=== PATIENT | female | born 1995 | race Caucasian/White ===

== ENCOUNTER → 2020-07-11 14:10 | Outpatient (BNVA) | payer BC, SELFPAY | PROVIDERS: PCP Internal Medicine; Visit Provider Internal Medicine Cardiovascular Disease | DX: O14.90 Unspecified pre-eclampsia, unspecified trimester (principal); R00.2 Palpitations | CPT/HCPCS: 93005 ==

== ENCOUNTER → 2022-08-29 10:51 | Outpatient (BNVA) | payer OTHER, SELFPAY | PROVIDERS: PCP Nurse Practitioner Family; Referring Provider Family Medicine; Visit Provider Internal Medicine Cardiovascular Disease | DX: R00.2 Palpitations (principal) | CPT/HCPCS: 93005 ==

== ENCOUNTER → 2022-09-18 10:00 | Outpatient (REF) | payer OTHER, SELFPAY ==
--- NOTE | 2022-09-18 10:03 | HM_ITS ---
Conclusion: 1. Patient was monitored for total period of 2 days and 23 hours 2. Baseline was normal sinus rhythm with average heart of 83 beats per minute 3. No significant pauses noted 4. Rare PVCs noted 5. No patient reported events MTDD
== END ==
LOC: HO.CARD 10:00
PROVIDERS: PCP Nurse Practitioner Family; Visit Provider Internal Medicine Cardiovascular Disease
DX: R00.2 Palpitations (principal)
CPT/HCPCS: 93242

== ENCOUNTER 2023-02-11 10:28 | Outpatient (AMB) | payer OTHER, SELFPAY ==
[2023-02-11 10:33] VITALS: BP 110/76; PULSE 66; BMI 28.4
--- NOTE | 2023-02-11 10:33 | MHC.OFFVIS ---
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 She was last seen in November 2019 when she presented with chest pain and palpitations. She was sent for echocardiogram which was since she normal. The palpitations were not frequent and we decided not to do any workup for that. She developed preeclampsia during her 1st . She is returning and is 27 weeks . She has been experiencing palpitations again. She feels that her heart is racing specially when she walks and she has noticed her heart rate to be 120s. This improved with rest. No chest discomfort. No significant shortness of breath. She is taking aspirin and vitamins currently. 02/11/2023: She returns for follow-up. She delivered her 2nd baby who is 2-month-old now. She is saying she has been experiencing some palpitations which continued after delivery. She said that approximately 17 years ago she was diagnosed with orthostasis and postural intolerance. This has been an ongoing thing for which she gets dizzy and gets palpitations off and on. She said she had a tilt-table test at that time. She was advised to increase her salt intake but she could not tolerate the salt tablets due to taste but does sprinkle salt to her diet. She said she had preeclampsia with elevated blood pressures and she is concerned about increasing salt in her diet. REPLACED BY [facility] Surgical History History of appendectomy History of wisdom tooth extraction Family History Father HTN (hypertension) Mother Brain tumor Pituitary tumor Maternal Grandfather Alzheimer's disease Maternal Grandmother No problems noted. Paternal Grandfather No problems noted. Paternal Grandmother No problems noted. Brother No problems noted. Sister No problems noted. Social History (Updated 08/29/22 @ 10:49 by LATISHA Kincaid) Alcohol intake: current Alcohol intake frequency: holidays/special occasions only Patient Tobacco Use Status: Never used Tobacco Review of Systems Const Denies chills, Denies fatigue, Denies fever(s), Denies frequent falls, Denies weakness, Denies weight gain and Denies weight loss ENT Denies dizziness Card Denies chest pain, Denies leg edema, Denies lightheadedness, Denies palpitations, Denies dyspnea, Denies dyspnea on exertion, Denies orthopnea and Denies other (loss of consciousness) Resp Denies cough, Denies dyspnea and Denies dyspnea on exertion GI Denies hematochezia and Denies change in stool character Musc Denies abnormal gait, Denies muscle weakness, Denies numbness, Denies radiating pain into limb and Denies tingling Neuro Denies abnormal gait, Denies dizziness, Denies frequent falls, Denies numbness, Denies tingling and Denies weakness Endo Denies fatigue and Denies palpitations Physical Exam Vital Signs: Last Vital Signs Pulse 66 02/11/23 10:33 BP 110/76 02/11/23 10:33 BMI result Body Mass Index 28.4 GENERAL APPEARANCE: in no acute distress, pleasant. NECK: no carotid bruit, no jugular venous distention. SKIN: no suspicious lesions, warm and dry. HEART: no murmurs, regular rate and rhythm. LUNGS: clear to auscultation bilaterally. ABDOMEN: soft, nontender. EXTREMITIES: no edema. PERIPHERAL PULSES: equal. NEUROLOGIC: No gross deficits, AAO X 3 Assessment & Plan Assessment & Plan (1) Palpitations: Code(s): R00.2 - Palpitations Plan 27-year-old female who is here for follow-up. She has background of palpitations. She also has history of orthostasis. She sprinkle so with diet. I have advised her to drink Gatorade or home made lemonade with some salt in it. For the palpitations we have decided not to add any medications. She will start regular exercise and we will observe her for now. She will see us back in few months. Coding Level of Care Code Est Pt Level 4 (72571) Diagnoses Palpitations R00.2
== END 2023-02-11 11:03 | disposition home or self-care (01) ==
PROVIDERS: Visit Provider Internal Medicine Cardiovascular Disease
DX: R00.2 Palpitations (principal)
CPT/HCPCS: 99214

== ENCOUNTER → 2023-02-11 10:28 | Outpatient (BNVA) | payer OTHER, SELFPAY | PROVIDERS: Visit Provider Internal Medicine Cardiovascular Disease ==

== ENCOUNTER → 2023-06-07 10:51 | Outpatient (REF) | payer OTHER, SELFPAY ==
--- NOTE | 2023-06-07 10:54 | CA_ITS ---
Transthoracic Echocardiogram Patient (Last, First, Middle): Kymberly Bhardwaj, Gender: Female Date of : 1995 Age: 27 Procedure Date: 06/07/2023 Procedure Type: Transthoracic Echocardiogram Location: OP Height: 162.56 cm Weight: 67.13 kg BSA: 1.72 m2 Heart Rate: bpm BP: 120 / 90 mmHg Licensed Funeral Director And Embalmer: DOROTHY Gallardo MD: Lance Delgado MD Symptoms: R00.2 - Palpitations Study Quality: Fair ECG Rhythm: Sinus Conclusions: - The left ventricular systolic function is low normal. The calculated ejection fraction is 54% by biplane method. - No obvious valvular pathology seen on this study. Findings Left Ventricle Normal left ventricular cavity size. There is normal left ventricular wall thickness. The left ventricular systolic function is low normal. The calculated ejection fraction is 54% by biplane method. There is no evidence of regional wall motion abnormalities. Diastolic function is normal for age. LV peak GLS -18.2%. Right Ventricle Normal right ventricular cavity size. There is low normal right ventricular systolic function. Atria Both atria are normal in size. Aortic Valve There is a normal trileaflet aortic valve. There is no aortic valve stenosis. There is no aortic valve regurgitation. Mitral Valve The mitral valve appears normal. There is no mitral valve regurgitation. There is no mitral valve stenosis. Pulmonic Valve The pulmonic valve is likely normal. Tricuspid Valve Normal tricuspid valve structure. There is trace tricuspid valve regurgitation. There is no evidence of pulmonary hypertension. Great Vessels The asc aorta is normal in size. Venous The inferior vena cava is normal in size and collapses greater than 50% with inspiration. Pericardium/Pleural There is no evidence of pericardial effusion. Prior Study Comparison No significant change compared to prior study dated: 12/02/2019. Recommendations, Care & Conclusions No obvious valvular pathology seen on this study. Measurements 2D Linear Measurements IVSd: 0.86 0.6-0.9/0.6-1.0 cm LVIDd: 4.16 3.9-5.3/4.2-5.9 cm LVIDd Index: 2.42 2.4-3.2/2.2-3.1 cm/m2 LVIDs: 3.08 2.0-3.6 cm LVPWd: 0.99 0.7-1.1 cm LA Diam: 2.70 2.7-3.8/3.0-4.0 cm LAIDs Index: 1.57 1.5-2.3 cm/m2 LV Mass: 149.77 67-162/88-224 g LV Mass Index: 87.08 43-95/49-115 g/m2 LVOT Diam: 1.90 3.0+(-)1.3 cm 2D Systolic Function EF 4C: 52.80 >55% EF 2C: 56.50 >55% EF BiP: 54.00 >55% Mitral Valve MV Pk E: 0.61 MV PK A: 0.44 MV Decel Time: 322.00 E/A: 1.40 E'Lateral: 14.90 E'Medial: 10.40 E/E' Med: 5.80 E/E' Lat: 4.10 PHT: 94.00 MVA PHT: 2.34 Decel [place]: 1.89 Aortic Valve AoV Pk Shamir: 1.26 AoV Mn Shamir: 0.93 AoV VTI: 0.28 AoV Pk Grad: 6.00 Aov Mn Grad: 4.00 JASON Cont.VTI: 1.72 LVOT LVOT Pk Shamir: 0.88 LVOT Mn Shamir: 0.61 LVOT VTI: 0.17 LVOT Pk Grad: 3.00 LVOT Mn Grad: 2.00 LVOT Diam: 1.90 LVOT Area: 2.84 Diastolic Function MV Pk E: 0.61 MV Pk A: 0.44 E/A: 1.40 E'Medial: 10.40 E/E' Med: 5.80 E' Laterial: 14.90 E/E' Lat: 4.10 Right Ventricle TAPSE (mm): 16.50 TVS' Shamir: 10.00 Tricuspid Valve TR Pk Shamir: 1.40 TR Pk Grad: 8.00 RA Press: 3.00 RVSP: 11.00 Great Vessels Aorta Sinus of Valsalva: 2.90 2.0-3.5 cm Ao Asc: 2.60 2.1-3.4 cm Pulmonary Valve PV Pk Shamir: 0.87 Peak PV Grad: 3.00 Updated in Other Vendor System with Status of Final Bartolo Philip MD electronically signed on 06/08/2023 12:08:20 PM with status of Final
== END ==
LOC: HO.CARD 10:51
PROVIDERS: PCP Nurse Practitioner Family; Visit Provider Internal Medicine Cardiovascular Disease
DX: R00.2 Palpitations (principal)
CPT/HCPCS: 93306; 93356

== ENCOUNTER → 2023-06-07 10:54 | Outpatient (BNV) | payer OTHER, SELFPAY | PROVIDERS: PCP Nurse Practitioner Family; Visit Provider Internal Medicine | DX: R00.2 Palpitations (principal) | CPT/HCPCS: 93306 ==

== ENCOUNTER 2023-06-17 13:41 | Outpatient (AMB) | payer OTHER, SELFPAY ==
--- NOTE | 2023-06-17 13:43 | A.OFFVIS_ITS ---
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 She was last seen in November 2019 when she presented with chest pain and palpitations. She was sent for echocardiogram which was essentially normal. The palpitations were not frequent and we decided not to do any workup for that. She developed preeclampsia during her 1st . She returned and was 27 weeks . She has been experiencing palpitations again. She feels that her heart is racing specially when she walks and she has noticed her heart rate to be 120s. This improved with rest. No chest discomfort. No significant shortness of breath. She is taking aspirin and vitamins currently. 02/11/2023: She returns for follow-up. S he delivered her 2nd baby who is 2-month-old now. She is saying she has been experiencing some palpitations which continued after delivery. She said that approximately 17 years ago she was diagnosed with orthostasis and postural intolerance. This has been an ongoing thing and she gets dizzy and gets palpitations off and on. She said she had a tilt-table test at that time. She was advised to increase her salt intake but she could not tolerate the salt tablets due to taste but does sprinkle salt to her diet. She said she had preeclampsia with elevated blood pressures and she is concerned about increasing salt in her diet. 06/17/23: She returns for follow-up. Sh crescencio had echocardiography which was again essentially normal. She had Holter monitor which did not show any significant arrhythmia. She continues to get orthostatic symptoms. She is saying that she gets tachycardia when she stands up from sitting position and gets dizzy. No syncope. She is saying she has been a little less vigilant about fluid intake and will be working on diet. She will be using Lmnt electrolytes. She previously was doing exercise and hydrating herself and was doing quite well. She is saying that exercises gone down somewhat. She also has a 6-month-old baby girl at home. [facility] Surgical History History of wisdom tooth extraction History of appendectomy Family History Father HTN (hypertension) Mother Brain tumor Pituitary tumor Maternal Grandfather Alzheimer's disease Maternal Grandmother No problems noted. Paternal Grandfather No problems noted. Paternal Grandmother No problems noted. Brother No problems noted. Sister No problems noted. Social History Alcohol intake: current Alcohol intake frequency: holidays/special occasions only Patient Tobacco Use Status: Never used Tobacco Review of Systems Const Denies weakness ENT Denies dizziness Card Denies chest pain, Denies chest pain with activity, Denies syncope, Denies rapid heart rate, Denies pedal edema, Denies edema, Denies leg edema, Denies lightheadedness, Denies palpitations, Denies dyspnea, Denies dyspnea on exertion and Denies orthopnea Resp Denies cough, Denies dyspnea and Denies dyspnea on exertion GI Denies hematochezia and Denies change in stool character Musc Denies abnormal gait, Denies muscle cramps, Denies muscle weakness, Denies numbness, Denies radiating pain into limb and Denies tingling Neuro Denies abnormal gait, Denies dizziness, Denies syncope, Denies numbness, Denies tingling and Denies weakness Endo Denies palpitations Physical Exam Vital Signs: Last Vital Signs Pulse 67 06/17/23 13:47 BP 112/80 06/17/23 13:47 BMI result Body Mass Index 26.5 GENERAL APPEARANCE: in no acute distress, pleasant. NECK: no carotid bruit, no jugular venous distention. SKIN: no suspicious lesions, warm and dry. HEART: no murmurs, regular rate and rhythm. LUNGS: clear to auscultation bilaterally. ABDOMEN: soft, nontender. EXTREMITIES: no edema. PERIPHERAL PULSES: equal. NEUROLOGIC: No gross deficits, AAO X 3 Assessment & Plan Assessment & Plan (1) Palpitations: Code(s): R00.2 - Palpitations (2) Orthostasis: Code(s): I95.1 - Orthostatic hypotension Plan 27 year female who is here for follow-up. She has background history of palpitations and orthostasis. She is done well in the past with exercise and increasing salt/fluid intake. During she was also doing quite well probably due to volume expansion. No arrhythmias noticed on the Holter monitor. ECHO is showing normal biventricular function. I have reassured her currently that we have not seen any significant arrhythmia or any obvious cardiac pathology. Her clinical story is also consistent with a longstanding issue which goes back to her teenage years. At 1 stage she was in [facility] where she had tilt-table testing and was told that she may have borderline POTS but currently her symptoms are not very convincing. I have advised her to continue hydration and salt intake. She will monitor her blood pressure once a week given the fact that she had preeclampsia during her 1st . Obviously her blood pressure is rising that we have to adjust the salt intake strategy. Follow-up with us in 1 year. Thank you for allowing me to participate in the care of your patient. Please feel free to contact me if you have any questions. Coding Level of Care Code Est Pt Level 4 (76657) Diagnoses Palpitations R00.2 Orthostasis I95.1
[2023-06-17 13:47] VITALS: BP 112/80; PULSE 67; BMI 26.5
== END 2023-06-17 14:21 | disposition home or self-care (01) ==
PROVIDERS: PCP Nurse Practitioner Family; Visit Provider Internal Medicine Cardiovascular Disease
DX: R00.2 Palpitations (principal); I95.1 Orthostatic hypotension
CPT/HCPCS: 99214

== ENCOUNTER → 2023-06-17 13:41 | Outpatient (BNVA) | payer OTHER, SELFPAY | PROVIDERS: PCP Nurse Practitioner Family; Visit Provider Internal Medicine Cardiovascular Disease ==

== ENCOUNTER 2024-06-25 11:07 | Outpatient (AMB) | payer OTHER, SELFPAY ==
--- NOTE | 2024-06-25 11:08 | AM.OFFWIN_ITS ---
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 Intake Note: Patient here for trouble breathing, chest pressure and feels like she has a band stretching across her stomach that has been present for about 3 weeks now she states she recently had a procedure done and was told she could have had lidocaine toxicity Patient Tobacco Use Status: Never used Tobacco Allergies azithromycin Allergy (Unknown, Verified 06/25/24 11:12) unknown amoxicillin [AMOXICILLIN] Adverse Reaction (Severe, Verified 06/25/24 11:12) NAUSEA Do you need a note to return to daycare/school/sports/work: No HPI HPI Comments History of Present Illness Details 28 y/o female patient who presents to [facility] walk in clinic with c/o Chest pains and Palpitations for 3 weeks now on/Off. Describes the pain as Tight Band underneath her diaphragm associated with Epigastric region tenderness. Denies SOB, Wheezing, headaches or dizziness. She did have a Cosmetic procedure called MOTs that helps in building muscles, 3 weeks ago but she ended up having too much Lidocaine applied to her Skin, which led to Lido Toxicity. She was being followed by Cardiology in the past 2023 for CP and Palpitations. All the Cardiac work-up negative. She is suppose f/u with them this year, but unable to due to lack of Health Insurance. She states being under tremendous Life stress at home - did not elaborate. Denies SI or SA. [facility] Medical History (Updated 06/25/24 @ 11:40 by Kaycee Bennett NP) Atypical chest pain Surgical History History of wisdom tooth extraction History of appendectomy Family History Father HTN (hypertension) Mother Brain tumor Pituitary tumor Maternal Grandfather Alzheimer's disease Maternal Grandmother No problems noted. Paternal Grandfather No problems noted. Paternal Grandmother No problems noted. Brother No problems noted. Sister No problems noted. Social History Alcohol intake: current Alcohol intake frequency: holidays/special occasions only Patient Tobacco Use Status: Never used Tobacco Review of Systems Const All systems reviewed & are unremarkable except as noted in HPI and below Physical Exam Vital Signs: Last Vital Signs Pulse 68 06/25/24 11:09 BP 122/80 06/25/24 11:09 Pulse Ox 98 06/25/24 11:09 Oxygen Delivery Method Room Air 06/25/24 11:09 BMI result Body Mass Index 22.3 Const General: cooperative and no acute distress Nutritional Appearance: well nourished Orientation/consciousness: patient oriented x3 Resp Effort & Inspection: normal respiratory effort and able to speak in complete sentences Auscultation: clear to auscultation bilaterally, no crackles, no rales, no rhonchi and no wheezes Cardio Rate: bradycardic Rhythm: regular rhythm Heart sounds: S1 normal heart sound present and S2 normal heart sound present GI Palpation (GI): Soft to palpation, Tenderness to palpation present (GI) (Sternum Palpitated. ) in the epigastrum and No hepatosplenomegaly present Auscultation: normal bowel sounds Neuro General: patient oriented x3, gait normal and moves all extremities Psych Speech and movement: Normal speech and movement present Assessment & Plan Assessment & Plan (1) Atypical chest pain: Code(s): R07.89 - Other chest pain Plan: Ordered Amb EKG (Sinus Bradycardia) Advised ED visit if symptoms persists. F/U with Cardiology. (2) Palpitations: Code(s): R00.2 - Palpitations Plan: Ordered Amb EKG (Sinus Bradycardia) Advised ED visit if symptoms persists. F/U with Cardiology. Orders: Orders AMB EKG-In Office Today R00.2 - Palpitations, R07.89 - Other chest pain Coding Level of Care Code Est Pt Level 4 (03065) Diagnoses Atypical chest pain R07.89 Palpitations R00.2 Time Spent (min) 20
[2024-06-25 11:09] VITALS: BP 122/80; PULSE 68; O2SAT 98
== END 2024-06-25 12:03 | disposition home or self-care (01) ==
PROVIDERS: Visit Provider Nurse Practitioner Family
DX: R07.89 Other chest pain (principal); R00.2 Palpitations

== ENCOUNTER → 2024-06-25 11:07 | Outpatient (BNVA) | payer OTHER, SELFPAY | PROVIDERS: Visit Provider Nurse Practitioner Family | DX: R07.89 Other chest pain (principal); R00.2 Palpitations | CPT/HCPCS: 93005 ==

== ENCOUNTER 2024-08-17 08:55 | Outpatient (AMB) | payer OTHER, SELFPAY ==
--- OUTSIDE RECORDS SUMMARY | 2024-08-17 09:01 | XMS_ITS | Encounter Summary ---
Author Organization [facility] Address [address] [place] [address] Phone Care Team Providers Care Pastry Artist Name Role Phone Ofelia Doran DO Primary Care Provider [phone] Encounter Details Date Type Department Care Team (Late st Contact Info) Description 08/25/2012 Documentation [facility] Family Medicine [address] [place] [address] Family Medicine, Physician [address] [place], [place] [phone] Social History Tobacco Use Types Packs/Day Years Used Date Smoking Tobacco: Never Assessed Comments Unknown Sex and Gender Information Value Date Recorded Sex Assigned at Not on file Legal Sex Female 4:51 PM EDT Gender Identity Not on file Sexual Orientation Not on file documented as of this encounter Plan of Treatment Not on file documented as of this encounter Visit Diagnoses Not on filedocumented in this encounter Care Teams Pastry Artist Relationship Specialty Start Date End Date Ofelia Doran DO [address] [place] [address] PCP - General 11/16/16 07/19/22 documented as of this encounter
--- OUTSIDE RECORDS SUMMARY | 2024-08-17 09:01 | XMS_ITS | Encounter Summary ---
Author Organization [facility] Address [address] [place] [address] Phone Care Team Providers Care Cleaning Porter Name Role Phone Ofelia Doran DO Primary Care Provider [phone] Encounter Details Date Type Department Care Team (Late st Contact Info) Description 03/26/2011 Documentation [facility] Family Medicine [address] [place] [address] Family Medicine, Physician [address] [place], [place] [phone] Social History Tobacco Use Types Packs/Day Years [...] on filedocumented in this encounter Care Teams Cleaning Porter Relationship Specialty Start Date End Date Ofelia Doran DO [address] [place] [address] PCP - General 11/16/16 07/19/22 documented as of this encounter
--- OUTSIDE RECORDS SUMMARY | 2024-08-17 09:01 | XMS_ITS | Encounter Summary ---
Author Organization [facility] Address [address] [place] [address] Phone Care Team Providers Care Mammography Technologist Name Role Phone Ofelia Doran DO Primary Care Provider [phone] Encounter Details Date Type Department Care Team (Late st Contact Info) Description 08/07/2012 Documentation [facility] Family Medicine [address] [place] [address] Family Medicine, Physician [address] [place], [place] [phone] Social History Tobacco Use Types Packs/Day Years [...] on filedocumented in this encounter Care Teams Mammography Technologist Relationship Specialty Start Date End Date Ofelia Doran DO [address] [place] [address] PCP - General 11/16/16 07/19/22 documented as of this encounter
--- OUTSIDE RECORDS SUMMARY | 2024-08-17 09:01 | XMS_ITS | Encounter Summary ---
Author Organization [facility] Address [address] [place] [address] Phone Care Team Providers Care Territory Manager General Sales Name Role Phone Ofelia Doran DO Primary Care Provider [phone] Encounter Details Date Type Department Care Team (Late st Contact Info) Description 07/16/2012 Documentation [facility] Family Medicine [address] [place] [address] Family Medicine, Physician [address] [place], [place] [phone] Social History Tobacco Use Types Packs/Day Years [...] on filedocumented in this encounter Care Teams Territory Manager General Sales Relationship Specialty Start Date End Date Ofelia Doran DO [address] [place] [address] PCP - General 11/16/16 07/19/22 documented as of this encounter
--- OUTSIDE RECORDS SUMMARY | 2024-08-17 09:01 | XMS_ITS | Encounter Summary ---
Author Organization [facility] Address [address] [place] [address] Phone Care Team Providers Care Sld Teacher Name Role Phone Ofelia Doran DO Primary Care Provider [phone] Encounter Details Date Type Department Care Team (Late st Contact Info) Description 01/09/2012 Documentation [facility] Family Medicine [address] [place] [address] Family Medicine, Physician [address] [place], [place] [phone] Social History Tobacco Use Types Packs/Day Years [...] on filedocumented in this encounter Care Teams Sld Teacher Relationship Specialty Start Date End Date Ofelia Doran DO [address] [place] [address] PCP - General 11/16/16 07/19/22 documented as of this encounter
--- OUTSIDE RECORDS SUMMARY | 2024-08-17 09:01 | XMS_ITS | Encounter Summary ---
Author Organization [facility] Address [address] [place] [address] Phone Care Team Providers Care Raw Juice Weigher Name Role Phone Ofelia Doran DO Primary Care Provider [phone] Encounter Details Date Type Department Care Team (Late st Contact Info) Description 08/26/2012 Documentation [facility] Family Medicine [address] [place] [address] Family Medicine, Physician [address] [place], [place] [phone] Social History Tobacco Use Types Packs/Day Years [...] on filedocumented in this encounter Care Teams Raw Juice Weigher Relationship Specialty Start Date End Date Ofelia Doran DO [address] [place] [address] PCP - General 11/16/16 07/19/22 documented as of this encounter
--- OUTSIDE RECORDS SUMMARY | 2024-08-17 09:01 | XMS_ITS | Encounter Summary ---
Author Organization [facility] Address [address] [place] [address] Phone Care Team Providers Care Glazier Metal Furniture Name Role Phone Ofelia Doran DO Primary Care Provider [phone] Encounter Details Date Type Department Care Team (Late st Contact Info) Description 08/07/2012 Documentation [facility] Family Medicine [address] [place] [address] Family Medicine, Physician [address] [place], [place] [phone] Social History Tobacco Use Types Packs/Day Years [...] on filedocumented in this encounter Care Teams Glazier Metal Furniture Relationship Specialty Start Date End Date Ofelia Doran DO [address] [place] [address] PCP - General 11/16/16 07/19/22 documented as of this encounter
--- NOTE | 2024-08-17 09:02 | MHC.OFFVIS ---
Vital Signs 08/17/24 09:04 Height 5 ft 4 in Weight 133 lb 9.602 oz BMI 22.9 BP 100/60 Blood Pressure Location Rt brachial Position Sitting Pulse 55 Pulse Source Monitor Intake Visit Reasons: 1 year fu Intake Note: 1 yr f/up Fire Sprinkler Service Technician Required: No Accompanied by: Self / Same As Patient Allergies azithromycin Allergy (Unknown, Verified 06/25/24 11:12) unknown amoxicillin [AMOXICILLIN] Adverse Reaction (Severe, Verified 06/25/24 11:12) NAUSEA Medication List - Last Reconciled 08/17/24 by Lance Delgado MD drospirenone-ethinyl estradiol 3-0.02 mg (Sandhya (28)) 1 tab PO DAILY HPI Comments Details: 28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 She was last seen in November 2019 when she presented with chest pain and palpitations. She was sent for echocardiogram which was essentially normal. The palpitations were not frequent and we decided not to do any workup for that. She developed preeclampsia during her 1st . She returned and was 27 weeks . She has been experiencing palpitations again. She feels that her heart is racing specially when she walks and she has noticed her heart rate to be 120s. This improved with rest. No chest discomfort. No significant shortness of breath. She is taking aspirin and vitamins currently. 02/11/2023: She returns for follow-up. She delivered her 2nd baby who is 2-month-old now. She is saying she has been experiencing some palpitations which continued after delivery. She said that approximately 17 years ago she was diagnosed with orthostasis and postural intolerance. This has been an ongoing thing and she gets dizzy and gets palpitations off and on. She said she had a tilt-table test at that time. She was advised to increase her salt intake but she could not tolerate the salt tablets due to taste but does sprinkle salt to her diet. She said she had preeclampsia with elevated blood pressures and she is concerned about increasing salt in her diet. 06/17/23: She returns for follow-up. She had echocardiography which was again essentially normal. She had Holter monitor which did not show any significant arrhythmia. She continues to get orthostatic symptoms. She is saying that she gets tachycardia when she stands up from sitting position and gets dizzy. No syncope. She is saying she has been a little less vigilant about fluid intake and will be working on diet. She will be using Lmnt electrolytes. She previously was doing exercise and hydrating herself and was doing quite well. She is saying that exercises gone down somewhat. She also has a 6-month-old baby girl at home. 08/17/2024: She is here for follow-up. She continues to get some palpitations and dizziness. She is hydrating and using salt in her diet. No syncopal episodes. 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 She is planning to go to [place] and is asking whether she can take roller coaster rides etc.. [facility] Medical History (Updated 06/25/24 @ 11:40 by Kaycee Bennett NP) Atypical chest pain Surgical History History of wisdom tooth extraction History of appendectomy Family History Father HTN (hypertension) Mother Brain tumor Pituitary tumor Maternal Grandfather Alzheimer's disease Maternal Grandmother No problems noted. Paternal Grandfather No problems noted. Paternal Grandmother No problems noted. Brother No problems noted. Sister No problems noted. Social History Alcohol intake: current Alcohol intake frequency: holidays/special occasions only Patient Tobacco Use Status: Never used Tobacco Review of Systems Const Denies chills, Denies fatigue, Denies fever(s), Denies frequent falls, Denies weakness, Denies weight gain and Denies weight loss ENT Denies dizziness Card Denies chest pain, Denies leg edema, Denies lightheadedness, Denies palpitations, Denies dyspnea and Denies dyspnea on exertion Resp Denies cough, Denies dyspnea and Denies dyspnea on exertion GI Denies hematochezia Musc Denies abnormal gait, Denies muscle weakness, Denies numbness, Denies radiating pain into limb and Denies tingling Neuro Denies abnormal gait, Denies dizziness, Denies frequent falls, Denies numbness, Denies tingling and Denies weakness Endo Denies fatigue and Denies palpitations Physical Exam Vital Signs: Last Vital Signs Pulse 55 08/17/24 09:04 BP 100/60 08/17/24 09:04 BMI result Body Mass Index 22.9 GENERAL APPEARANCE: in no acute distress, pleasant. NECK: no carotid bruit, no jugular venous distention. SKIN: no suspicious lesions, warm and dry. HEART: no murmurs, regular rate and rhythm. Bradycardic. LUNGS: clear to auscultation bilaterally. ABDOMEN: soft, nontender. EXTREMITIES: no edema. PERIPHERAL PULSES: equal. NEUROLOGIC: No gross deficits, AAO X 3 Office Procedures EKG Details: Sinus bradycardia 55 beats per minute, normal axis, QTC 409 milliseconds [id number], Complete Assessment & Plan Assessment & Plan (1) Orthostasis: Code(s): I95.1 - Orthostatic hypotension Category: Medical (2) Palpitations: Code(s): R00.2 - Palpitations Category: Medical Plan Pleasant 28 year female who is here for follow-up. She has background history of palpitations and orthostasis. She has been doing fairly good with hydration and salt intake. She has not used compression stockings but does have them. She has been exercising and saying that she has been doing much better compared to before. About a trip to [place], I have advised her that she has to be very cautious in hot weather. It is summertime and [place] practically is going to be hotter and humid than [place]. I have advised her to keep herself well hydrated. She will cover her head and try to avoid heat as much as possible. About roller coaster rides I have advised her that to be cautious-I am unsure how she will react to changes in position there. She will try it and see if she tolerates them. Thank you for allowing me to participate in the care of your patient. Please feel free to contact me if you have any questions. Coding Level of Care Code Est Pt Level 4 (38674) Diagnoses Orthostasis I95.1 Palpitations R00.2 CPT Codes EKG - CPT: 95514-[id number], Complete ([id number])
--- OUTSIDE RECORDS SUMMARY | 2024-08-17 09:02 | XMS_ITS | Encounter Summary ---
Author Organization [facility] Address [address] [place] [address] Phone Care Team Providers Care Java Web User Interface Developer Name Role Phone Ofelia Doran DO Primary Care Provider [phone] Encounter Details Date Type Department Care Team (Late st Contact Info) Description 11/22/2016 Conversion Encounter [facility] [place] [address] [place] [address] Social History Tobacco Use Types Packs/Day Years Used Date Smoking Tobacco: Never Comments:Never smoker Comments Unknown Sex and Gender Information Value Date Recorded Sex Assigned at Not on file Legal Sex Female 4:51 PM EDT Gender Identity Not on file Sexual Orientation Not on file documented as of this encounter Plan of Treatment Not on file documented as of this encounter Visit Diagnoses Not on filedocumented in this encounter Care Teams Java Web User Interface Developer Relationship Specialty Start Date End Date Ofelia Doran DO [address] [place] [address] PCP - General 11/16/16 07/19/22 documented as of this encounter
--- OUTSIDE RECORDS SUMMARY | 2024-08-17 09:02 | XMS_ITS | Encounter Summary ---
Author Organization [facility] Address [address] [place] [address] Phone Care Team Providers Care Steam Crane Operator Name Role Phone Ofelia Doran DO Primary Care Provider [phone] Encounter Details Date Type Department Care Team (Late st Contact Info) Description 03/26/2011 Documentation [facility] [place] [address] [place] [address] Family Medicine, Physician [address] [place], [place] [phone] Social History Tobacco Use Types Packs/Day Years [...] on filedocumented in this encounter Care Teams Steam Crane Operator Relationship Specialty Start Date End Date Ofelia Doran DO [address] [place] [address] PCP - General 11/16/16 07/19/22 documented as of this encounter
--- OUTSIDE RECORDS SUMMARY | 2024-08-17 09:02 | XMS_ITS | Encounter Summary ---
Author Organization [facility] Address [address] [place] [address] Phone Care Team Providers Care Cripple Cutter Name Role Phone Ofelia Doran DO Primary Care Provider [phone] Encounter Details Date Type Department Care Team (Late st Contact Info) Description 08/26/2012 Documentation [facility] [place] [address] [place] [address] Family Medicine, Physician [address] [place], [place] [phone] Social History Tobacco Use Types Packs/Day Years [...] on filedocumented in this encounter Care Teams Cripple Cutter Relationship Specialty Start Date End Date Ofelia Doran DO [address] [place] [address] PCP - General 11/16/16 07/19/22 documented as of this encounter
--- OUTSIDE RECORDS SUMMARY | 2024-08-17 09:02 | XMS_ITS | Encounter Summary ---
Author Organization [facility] Address [address] [place] [address] Phone Care Team Providers Care Upper Marker Name Role Phone Ofelia Doran DO Primary Care Provider [phone] Encounter Details Date Type Department Care Team (Late st Contact Info) Description 12/29/2012 Documentation [facility] [place] [address] [place] [address] Family Medicine, Physician [address] [place], [place] [phone] Social History Tobacco Use Types Packs/Day Years [...] on filedocumented in this encounter Care Teams Upper Marker Relationship Specialty Start Date End Date Ofelia Doran DO [address] [facility] [place] [address] PCP - General 11/16/16 07/19/22 documented as of this encounter
--- OUTSIDE RECORDS SUMMARY | 2024-08-17 09:02 | XMS_ITS | Encounter Summary ---
Author Organization [facility] Address [address] [place] [address] Phone Care Team Providers Care Ad Copy Writer Name Role Phone Ofelia Doran DO Primary Care Provider [phone] Encounter Details Date Type Department Care Team (Late st Contact Info) Description 03/26/2011 [place] [facility] [place] [address] [place] [address] Family Medicine, Physician [address] [place], [place] [phone] Social History Tobacco Use Types Packs/Day Years [...] on filedocumented in this encounter Care Teams Ad Copy Writer Relationship Specialty Start Date End Date Ofelia Doran DO [address] [place] [address] PCP - General 11/16/16 07/19/22 documented as of this encounter
--- OUTSIDE RECORDS SUMMARY | 2024-08-17 09:02 | XMS_ITS | Encounter Summary ---
Author Organization [facility] Address [address] [place] [address] Phone Care Team Providers Care Oil Seal Assembler Name Role Phone Ofelia Doran DO Primary Care Provider [phone] Encounter Details Date Type Department Care Team (Late st Contact Info) Description 10/01/2011 Documentation [facility] [place] [address] [place] [address] Family Medicine, Physician [address] [place], [place] [phone] Social History Tobacco Use Types Packs/Day Years [...] on filedocumented in this encounter Care Teams Oil Seal Assembler Relationship Specialty Start Date End Date Ofelia Doran DO [address] [place] [address] PCP - General 11/16/16 07/19/22 documented as of this encounter
--- OUTSIDE RECORDS SUMMARY | 2024-08-17 09:02 | XMS_ITS | Clinical Summary ---
Author Organization [facility] Address [address] [place] [address] Phone Care Team Providers Care Game Developer Name Role Phone Unavailable Primary Care Provider Unavailabl e Immunizations Immunization Administration Dates Next Due DTP 01/22/1995, 5,02/19/1994,12/22 DTaP 5 10/26/1997 HPV, Quadrivalent 07/03/2007,02/20/2007,12/20/19 07 Hep B, ped/adol 10/22/1994,1993,1993 Hib (PRP-T) 01/22/1995, 5,02/19/1994,12/22 MMR 10/26/1998,01/22/1995 Meningococcal Conj (Menactra) MCV4P 12/19/2006 OPV 10/26/1997, 5,02/19/1994,12/22 Td (adult) (MBL), 2 Lf tetan us toxoid, PF, adsorbed 09/26/2011 Tdap 12/06/2005 Varicella 01/15/2008,12/02/1995 Family History Relation Name Status Comments Father Father: 'stomac h problems' Mother Alive Mother: Alive a nd well Other No family histo ry of thrombophili, Family history of Eczema Social History Tobacco Use Types Packs/Day Years Used Date Smoking Tobacco: Never Comments:Never smoker Comments Unknown Sex and Gender Information Value Date Recorded Sex Assigned at Not on file Legal Sex Female 4:51 PM EDT Gender Identity Not on file Sexual Orientation Not on file Last Filed Vital Signs Vital Sign Reading Time Taken Comments Blood Pressure 104/70 12/01/2012 12:00 AM EDT Pulse 68 08/25/2012 12:00 AM EDT Temperature 36.8 ??C (98.2 ??F) 12/01/2012 12:00 AM E DT Respiratory Rate - - Oxygen Saturation - - Inhaled Oxygen Concentration - - Weight 62.6 kg (138 lb) 12/01/2012 12:00 AM EDT Height 163.3 cm (5' 4.3 ) 12/01/2012 12:00 AM ED T Body Mass Index 23.47 12/01/2012 12:00 AM EDT Plan of Treatment Health Maintenance Due Date Last Done Comments DTaP,Tdap,and Td Vaccines (8 - Td or Tdap) 09/25/2021 09/26/2011, 12/06/2005, 10/26/1997, Additional history exists Influenza Vaccines (#1) 2023 COVID-19 Vaccine ( season) 2023 Hepatitis B Vaccines Completed 10/22/1994, 1993, 1993 HIB Vaccines Completed 01/22/1995, 04/08, 02/19/1994, Additional history exists IPV Vaccines Completed 10/26/1997, 04/08, 02/19/1994, Additional history exists MMR Vaccines Completed 10/26/1998, 01/22/1995 Meningococcal Vaccine Aged Out 12/19/2006 No migel keara eligible based on patient's age to complete this topic HPV Vaccines Completed 07/03/2007, 02/06, 12/19/2006 Varicella Vaccines Completed 01/15/2008, 12/02/1995 Hepatitis A Vaccines Aged Out No long er eligible based on patient's age to complete this topic Men B Vaccine Aged Out No longer elig ible based on patient's age to complete this topic Pneumococcal Vaccine Aged Out No long er eligible based on patient's age to complete this topic
--- OUTSIDE RECORDS SUMMARY | 2024-08-17 09:02 | XMS_ITS | Encounter Summary ---
Author Organization [facility] Address [address] [place] [address] Phone Care Team Providers Care Tire Fabric Inspector Name Role Phone Ofelia Doran DO Primary Care Provider [phone] Encounter Details Date Type Department Care Team (Late st Contact Info) Description 08/14/2011 Documentation [facility] [place] [address] [place] [address] Family Medicine, Physician [address] [place], [place] [phone] Social History Tobacco Use Types Packs/Day Years [...] on filedocumented in this encounter Care Teams Tire Fabric Inspector Relationship Specialty Start Date End Date Ofelia Doran DO [address] [facility] [place] [address] PCP - General 11/16/16 07/19/22 documented as of this encounter
--- OUTSIDE RECORDS SUMMARY | 2024-08-17 09:02 | XMS_ITS | Encounter Summary ---
Author Organization [facility] Address [address] [place] [address] Phone Care Team Providers Care Poly Operator Name Role Phone Ofelia Doran DO Primary Care Provider [phone] Encounter Details Date Type Department Care Team (Late st Contact Info) Description 09/27/2011 Documentation [facility] [place] [address] [place] [address] Family Medicine, Physician [address] [place], [place] [phone] Social History Tobacco Use Types Packs/Day Years [...] on filedocumented in this encounter Care Teams Poly Operator Relationship Specialty Start Date End Date Ofelia Doran DO [address] [facility] [place] [address] PCP - General 11/16/16 07/19/22 documented as of this encounter
[2024-08-17 09:04] VITALS: BP 100/60; PULSE 55; BMI 22.9
== END 2024-08-17 09:46 | disposition home or self-care (01) ==
PROVIDERS: Visit Provider Internal Medicine Cardiovascular Disease
DX: I95.1 Orthostatic hypotension (principal); R00.2 Palpitations
CPT/HCPCS: 93010; 99214

== ENCOUNTER → 2024-08-17 08:55 | Outpatient (BNVA) | payer OTHER, SELFPAY | PROVIDERS: Visit Provider Internal Medicine Cardiovascular Disease | DX: R00.2 Palpitations (principal); I95.1 Orthostatic hypotension | CPT/HCPCS: 93005 ==